=== PATIENT | female | born 1950 | race Caucasian/White ===

== ENCOUNTER → 2019-09-16 12:39 | Outpatient (CLI) | payer OTHER, SELFPAY ==
--- NOTE | ~2019-09-16 | MM_ITS ---
EXAMINATION: MM screening [facility] BI w bib[place] HISTORY: Screening mammogram TECHNIQUE: Craniocaudal and mediolateral oblique 3-D tomosynthesis images were obtained and synthetic 2-D images were generated. CAD analysis was submitted and interpreted. COMPARISON: 03/17/2018, 03/05/2018, 11/23/2015, 01/17/2013 BREAST PARENCHYMAL COMPOSITION: There are scattered areas of fibroglandular density. FINDINGS: There is no evidence of suspicious mass, calcification, or architectural distortion to sugg est malignancy in either breast. There has been no suspicious interval change. IMPRESSION: 1. No mammographic evidence of malignancy. 2. Recommend routine screening mammography in one year. BI-RADS Category 1: Negative Reviewed, dictated and finalized at location A.
== END ==
PROVIDERS: PCP Family Medicine Adolescent Medicine; Visit Provider Nurse Practitioner Obstetrics & Gynecology
DX: Z12.31 Encounter for screening mammogram for malignant neoplasm of breast (principal)
CPT/HCPCS: 77063; 77067

== ENCOUNTER 2022-04-04 00:44 | Day surgery (SDC) | payer OTHER, SELFPAY ==
[2022-03-18 12:05] VITALS: BMI 25.9
[2022-04-04 07:43] VITALS: BP 118/81; PULSE 72; RESP 20; TEMP 36.8; O2SAT 100
[2022-04-04] MEDS: LACTATED RINGERS 1,000 ML 150 ML IV CONT (07:52)
--- NOTE | 2022-04-04 08:48 | WPDANESEPPF ---
Anes - Initial Pre Proc Eval Procedure: Operation Date: 04/04/22 08:45 Proposed Procedures p Colonoscopy - Emile Najera MD Date/Time: 04/04/22 08:48 Surgeon: Emile Najera MD Pre Op Diagnosis: positive cologuard Patient Data Age: 72 Gender: F Height: 1.61 m Weight: 67.2 kg Last Vital Signs Temp 98.2 F 04/04/22 07:43 Pulse 72 04/04/22 07:43 Resp 20 04/04/22 07:43 BP 118/81 04/04/22 07:43 Pulse Ox 100 04/04/22 07:43 O2 Del Method Room Air 04/04/22 07:43 Allergies Allergy/AdvReac Type Severity Reaction Status Date / Time Sulfa (Sulfonamide AdvReac Intermediate Upset Verified 04/04/22 07:42 Antibiotics) stomach Home Medications Medication Instructions Recorded Confirmed Type levothyroxine 25 mcg tablet 25 mcg PO DAILY #90 tabs 11/20/21 04/04/22 Rx lovastatin 40 mg tablet 40 mg PO DAILY #90 tabs 11/20/21 04/04/22 Rx calcium carbonate 500 mg calcium 500 mg PO DAILY 03/05/22 04/04/22 History (1,250 mg) chewable tablet (Calcium 500) tiffanie (Zingiber officinalis) 500 500 mg PO DAILY 03/05/22 04/04/22 History mg capsule multivitamin (Daily Multi-Vitamin 1 tablet PO DAILY 03/05/22 04/04/22 History tablet) omega-3 fatty acids 500 mg capsule 500 mg PO DAILY 03/05/22 04/04/22 History vitamin B complex (B 1 tablet PO DAILY 03/05/22 04/04/22 History Complex-Vitamin B12 tablet) zinc gluconate 30 mg tablet 15 mg PO DAILY 03/05/22 04/04/22 History sodium,potassium,mag sulfates 17.5 See Rx Instructions PO .COMPLEX 03/07/22 04/04/22 Rx gram-3.13 gram-1.6 gram oral soln #354 mL (Suprep Bowel Prep Kit) Patient hx anesthesia problems: none Family hx anesthesia problems: none Results Review: All pre-operative results and documents have been reviewed as part of the pre-operative evaluation. PENDING SALE TO [facility] Surgical History Surgical History History of partial thyroidectomy (~2000) Adenoma Family History Family History Mother Alzheimer's dementia Father Family history of macular degeneration Alzheimer's dementia Other Family history of cardiovascular disease Social History Social History Smoking status: Never smoker Second hand tobacco smoke exposure: No Alcohol intake: never Substance use: never Substance use type: does not use Living arrangements: with family Additional living arrangements comments: spouse is disabled Gender identity (if verbalized by the patient): Female Sexual Orientation (if Verbalized by the Patient): Straight or Heterosexual Spiritual care concerns: No Agree to blood products: Yes Anes - Eval Final PreProcedure Day of Procedure 04/04/22 08:48 Patient weight: normal Heart: regular rate and rhythm Lungs: clear to auscultation Airway: Mallampati scale class II Neurological: alert and oriented Last oral intake: >/= 8 hours ASA classification: II Emergent: no Anesthetic plan: proceed Anesthesia type and monitoring: general GIVS and standard monitoring Results Review: All pre-operative results and documents have been reviewed as part of the pre-operative evaluation. Informed Consent: The patient's anesthetic plan and its attendant risks and benefits were discussed with the patient/family/POA. Questions were solicited and answers provided to the satisfaction of the patient/family/POA.
--- NOTE | 2022-04-04 09:14 | PM.HPGS ---
History of Present Illness History of Present Illness Consent: Risks, benefits, and alternatives have been discussed and questions answered. Patient agrees to proceed with procedure. Chief complaint: positive cologuard Narrative: Savanna Stark is a 72 year old female Presents for neoplasia screening colonoscopy. Patient recently found to have positive screening Cologuard test. Patient's current weight appetite and bowel movements are normal. Patient denies abdominal pain. She has had no bleeding. Family history noncontributory. Review of Systems Review of Systems: Review of systems noncontributory. [facility] Surgical History Surgical History History of partial thyroidectomy (~2000) Adenoma Family History Family History Mother Alzheimer's dementia Father Family history of macular degeneration Alzheimer's dementia Other Family history of cardiovascular disease Social History Social History Smoking status: Never smoker Second hand tobacco smoke exposure: No Alcohol intake: never Substance use: never Substance use type: does not use Living arrangements: with family Additional living arrangements comments: spouse is disabled Gender identity (if verbalized by the patient): Female Sexual Orientation (if Verbalized by the Patient): Straight or Heterosexual Spiritual care concerns: No Agree to blood products: Yes Meds Home Medications and Allergies Home Medications Medication Instructions Recorded Confirmed Type levothyroxine 25 mcg tablet 25 mcg PO DAILY #90 tabs 11/20/21 04/04/22 Rx lovastatin 40 mg tablet 40 mg PO DAILY #90 tabs 11/20/21 04/04/22 Rx calcium carbonate 500 mg calcium 500 mg PO DAILY 03/05/22 04/04/22 History (1,250 mg) chewable tablet (Calcium 500) tiffanie (Zingiber officinalis) 500 500 mg PO DAILY 03/05/22 04/04/22 History mg capsule multivitamin (Daily Multi-Vitamin 1 tablet PO DAILY 03/05/22 04/04/22 History tablet) omega-3 fatty acids 500 mg capsule 500 mg PO DAILY 03/05/22 04/04/22 History vitamin B complex (B 1 tablet PO DAILY 03/05/22 04/04/22 History Complex-Vitamin B12 tablet) zinc gluconate 30 mg tablet 15 mg PO DAILY 03/05/22 04/04/22 History sodium,potassium,mag sulfates 17.5 See Rx Instructions PO .COMPLEX 03/07/22 04/04/22 Rx gram-3.13 gram-1.6 gram oral soln #354 mL (Suprep Bowel Prep Kit) Allergies Allergy/AdvReac Type Severity Reaction Status Date / Time Sulfa (Sulfonamide AdvReac Intermediate Upset Verified 04/04/22 07:42 Antibiotics) stomach Vital Signs Vital Signs - 24 hr 04/04/22 07:43 Temperature 98.2 F Pulse Rate 72 Respiratory Rate 20 Blood Pressure 118/81 Pulse Oximetry 100 Oxygen Delivery Room Air Exam Narrative: Physical exam reveals patient to be alert. Vital signs stable. HEENT exam is unremarkable. Patient is anicteric. Lungs are clear to auscultation and percussion. Heart is without murmur or extra sounds. Abdomen bowel sounds are present soft nontender with no organomegaly. Digital external rectal exam is normal. Assessment and Plan Assessment and plan (1) Positive colorectal cancer screening using Cologuard test: Code(s): R19.5 - Other fecal abnormalities Status: Acute Assessment and Plan: Patient has a positive Cologuard test. Plan for a screening colonoscopy further recommendations will be given after endoscopy.
[2022-04-04 09:46] VITALS: BP 114/72; PULSE 65; RESP 16; O2SAT 99
[2022-04-04 09:56] VITALS: BP 119/67; PULSE 74; RESP 23; O2SAT 100
[2022-04-04 10:06] VITALS: BP 104/59; PULSE 69; RESP 23; O2SAT 100
== END 2022-04-04 10:14 | disposition home or self-care (01) ==
PROVIDERS: PCP Family Medicine Adolescent Medicine; Visit Provider Internal Medicine Gastroenterology
PROC: 0DJD8ZZ Inspection of Lower Intestinal Tract, Via Natural or Artificial Opening Endoscopic (ICD-10-PCS; CPT 45378; principal; 2022-04-04 08:45)
DX: R19.5 Other fecal abnormalities (principal); K64.8 Other hemorrhoids; K57.30 Diverticulosis of large intestine without perforation or abscess without bleeding; K63.5 Polyp of colon; E03.9 Hypothyroidism, unspecified
CPT/HCPCS: 45385; 88305; J2704; J7120

== ENCOUNTER 2022-09-19 09:58 | Outpatient (CLI) | payer OTHER, SELFPAY ==
--- NOTE | 2022-09-19 10:06 | EST_ITS ---
Patient Info Name: Savanna Stark Age: 72 years : 1950 Gender: Female Ht: 64 in Wt: 154 lbs BSA: 1.79 m2 Exam Date: 09/19/2022 10:34 AM Exam Location: [facility] Pulmonary Patient Status: Outpatient Admit Date: 09/19/2022 Staff Ordering Physician: Phan Cosme MD Fuel Technician: Shreya Hassan RDCS Attending Provider: DR. JOSEPH Referring Physician: Carmelina COSME; Exercise Technologist: Shreya Hassan RDCS Exercise Physician: Bashir Joseph DO Exam Type: CA stress echo Study Info Indications R07.9 - Chest pain, unspecified Treadmill exercise stress echocardiogram is performed. Summary 1. 1. Negative Vikas exercise stress test for ischemic ST changes by ECG criteria. 2. 2. Poor functional capacity, achieving 4.5 METs of workload. 3. 3. Baseline hypertension. 4. 4. Appropriate HR response to exercise. 5. 5. Appropriate HR recovery at 1 minute post exercise. 6. 6. Negative stress echocardiogram for ischemia by wall motion analysis. 7. 7. Patient informed of the above results. Stress Echo Findings Left Ventricle Appropriate increase in LV endocardial thickening with systole. Appropriate augmentation of contractility with systole. No wall motion abnormality. Left Ventricle Normal LV systolic function, no wall motion abnormality. Protocol: Vikas Stress ECG Details Stage: REST Duration (min): 1 min : 13 sec Speed (mph): 0.0 Grade (%): 0 HR (bpm): 78 SBP (mmHg): 155 DBP (mmHg): 94 METS: --- Stage: REST Duration (min): 43 min : 8 sec Speed (mph): 0.0 Grade (%): 0 HR (bpm): 76 SBP (mmHg): 155 DBP (mmHg): 94 METS: --- Stage: STAGE 1 Duration (min): 1 min : 0 sec Speed (mph): 1.7 Grade (%): 10 HR (bpm): 119 SBP (mmHg): 155 DBP (mmHg): 94 METS: --- Stage: STAGE 1 Duration (min): 2 min : 0 sec Speed (mph): 1.7 Grade (%): 10 HR (bpm): 142 SBP (mmHg): 155 DBP (mmHg): 94 METS: --- Stage: STAGE 1 Duration (min): 2 min : 1 sec Speed (mph): 0.0 Grade (%): 0 HR (bpm): 142 SBP (mmHg): 155 DBP (mmHg): 94 METS: --- Stage: RECOVERY Duration (min): 0 min : 58 sec Speed (mph): 0.0 Grade (%): 0 HR (bpm): 124 SBP (mmHg): 202 DBP (mmHg): 89 METS: --- Stage: RECOVERY Duration (min): 1 min : 58 sec Speed (mph): 0.0 Grade (%): 0 HR (bpm): 103 SBP (mmHg): 202 DBP (mmHg): 89 METS: --- Stage: RECOVERY Duration (min): 2 min : 58 sec Speed (mph): 0.0 Grade (%): 0 HR (bpm): 81 SBP (mmHg): 189 DBP (mmHg): 82 METS: --- Stage: RECOVERY Duration (min): 3 min : 58 sec Speed (mph): 0.0 Grade (%): 0 HR (bpm): 96 SBP (mmHg): 189 DBP (mmHg): 82 METS: --- Stage: RECOVERY Duration (min): 4 min : 58 sec Speed (mph): 0.0 Grade (%): 0 HR (bpm): 90 SBP (mmHg): 178 DBP (mmHg): 80 METS: --- Stage: RECOVERY Duration (min): 5 min : 4 sec Speed
== END 2022-09-19 09:59 | disposition home or self-care (01) ==
PROVIDERS: PCP Family Medicine Adolescent Medicine; Visit Provider Family Medicine Adolescent Medicine
DX: R07.9 Chest pain, unspecified (principal); E78.00 Pure hypercholesterolemia, unspecified; I10 Essential (primary) hypertension
CPT/HCPCS: 93351

== ENCOUNTER → 2022-12-27 15:54 | Outpatient (CLI) | payer OTHER, SELFPAY ==
--- NOTE | ~2022-12-27 | MM_ITS ---
EXAMINATION: MM screening [facility] BI w bib[place] HISTORY: Screening mammogram TECHNIQUE: Craniocaudal and mediolateral oblique 3-D tomosynthesis images were obtained and synthetic 2-D images were generated. CAD analysis was submitted and interpreted. COMPARISON: 09/16/2019 bilateral screening mammograms 03/17/2018 bilateral diagnostic mammogram and Limited bilateral breast ultrasound examination 03/05/2018 bilateral screening mammogram BREAST PARENCHYMAL COMPOSITION: There are scattered areas of fibroglandular stroma. FINDINGS: Stable mild fibroglandular asymmetry and mild nodularity of the fibroglandular stroma since 03/05/2018. Occasional bilateral benign calcifications. There is no evidence of suspicious mass, calc ification, or architectural distortion to suggest malignancy in either breast. There has been no susp icious interval change. IMPRESSION: 1. No mammographic evidence of malignancy. 2. Recommend routine screening mammography in one year. BI-RADS Category 2: Benign finding(s). Reviewed, dictated and finalized at location A.
== END ==
PROVIDERS: PCP Family Medicine Adolescent Medicine; Visit Provider Family Medicine Adolescent Medicine
DX: Z12.31 Encounter for screening mammogram for malignant neoplasm of breast (principal)
CPT/HCPCS: 77063; 77067

== ENCOUNTER 2023-05-02 17:29 | Emergency (ER) | payer OTHER, SELFPAY ==
--- NOTE | ~2023-05-02 | XR_ITS ---
EXAMINATION: XR wrist LT min 3V DATE: 05/02/2023 18:29 INDICATION: Left wrist pain TECHNIQUE: Posteroanterior, ulnar deviation, oblique, and lateral views of the left wrist were obtain ed. COMPARISON: None available FINDINGS: Bone alignment is normal. A possible fracture is seen dorsal to the distal carpal row on th e lateral view of the wrist a transverse lucency in the scaphoid waist on the oblique view likely rep resents a vascular channel. 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 Wrist soft tissue swelling is noted. IMPRESSION: 1. Possible dorsal avulsion fracture of the distal carpal row seen on the lateral view. Consider furt her evaluation with CT. Reviewed, dictated and finalized at location F. IMPRESSION: 1. Possible dorsal avulsion fracture of the distal carpal row seen on the later al view. Consider further evaluation with CT.
[2023-05-02 17:40] VITALS: BP 115/78; PULSE 90; RESP 18; TEMP 37.6; O2SAT 98
--- NOTE | 2023-05-02 17:51 | ED.UPPEXIN ---
HPI - Extremity Injury (Upper) General Chief Complaint: Extremity Injury, Upper <Kristina Mcgraw NP - Last Filed: 05/02/23 19:08> Stated Complaint: left wrist pain <KIMBERLY Peralta Last Filed: 05/02/23 19:08> Time Seen by Provider: 05/02/23 17:51 <Kristina Mcgraw NP - Last Filed: 05/02/23 19:08> Source: patient <Kristina Mcgraw NP - Last Filed: 05/02/23 19:08> Mode of arrival: ambulatory <KIMBERLY Peralta Last Filed: 05/02/23 19:08> Limitations: no limitations <Kristina Mcgraw NP - Last Filed: 05/02/23 19:08> History of Present Illness HPI narrative: 73 yo F presents with pain and swelling to R wrist. Fell today on sidewalk and put wrist down to catch herself. Denies hitting head. Was able to get up on her own. think i have a sprain but want an x-ray to make sure . ROM decreased due to pain, distal NV intact. All systems reviewed and negative except as noted above. <Kristina Mcgraw NP - Last Filed: 05/02/23 19:08> Related Data Home Medications: Home Medications Medication Instructions Recorded Confirmed calcium carbonate 500 mg calcium 500 mg PO DAILY 03/05/22 05/02/23 (1,250 mg) chewable tablet (Calcium 500) tiffanie (Zingiber officinalis) 500 500 mg PO DAILY 03/05/22 05/02/23 mg capsule multivitamin (Daily Multi-Vitamin 1 tablet PO DAILY 03/05/22 05/02/23 tablet) omega-3 fatty acids 500 mg capsule 500 mg PO DAILY 03/05/22 05/02/23 vitamin B complex (B 1 tablet PO DAILY 03/05/22 05/02/23 Complex-Vitamin B12 tablet) vitamin C 45 mg-zinc citrate 3.75 1 tablet PO DAILY 09/10/22 05/02/23 mg-elderberry 50 mg chewable tablet (GoPollGo) <KIMBERLY Peralta Last Filed: 05/02/23 19:08> Allergies/Adverse Reactions: Allergies Allergy/AdvReac Type Severity Reaction Status Date / Time Sulfa (Sulfonamide AdvReac Intermediate Upset Verified 05/02/23 17:31 Antibiotics) stomach <Kristina Mcgraw NP - Last Filed: 05/02/23 19:08> Review of Systems Review of Systems: CONSTITUTIONAL: Denies fever, chills, or sweats. EYES: Denies visual changes, redness, or discharge. ENT: Denies rhinorrhea, congestion, sore throat, or otalgia. CARDIOVASCULAR: Denies chest pain, palpitations, or edema. RESPIRATORY: Denies cough or dyspnea. GASTROINTESTINAL: Denies abdominal pain, nausea, vomiting, or diarrhea. GENITOURINARY: Denies dysuria or hematuria. SKIN: Denies rash or itching. MUSCULOSKELETAL: Denies back pain or myalgia. Reports pain and swelling to L wrist. NEUROLOGIC: Denies headache, numbness, or weakness. PSYCHIATRIC: Denies anxiety or depression. All other systems reviewed are negative, except as documented in HPI. <Kristina Mcgraw NP - Last Filed: 05/02/23 19:08> [facility] Past Medical History Medical History: Medical History (Updated 05/02/23 @ 19:08 by Caroline Marquez APRN) Positive colorectal cancer screening using Cologuard test <Kristina Mcgraw NP - Last Filed: 05/02/23 19:08> Surgical History Surgical History: Surgical History History of partial thyroidectomy (~2000) Adenoma <Kristina Mcgraw NP - Last Filed: 05/02/23 19:08> Family History Family History: Family History Mother Alzheimer's dementia Father Family history of macular degeneration Alzheimer's dementia Other Family history of cardiovascular disease <Kristina Mcgraw NP - Last Filed: 05/02/23 19:08> Social History Social History: Social History (Updated 01/28/23 @ 10:24 by Jeffery Perez MA) Smoking status: Never smoker Second hand tobacco smoke exposure: No Alcohol intake: never Substance use: never Substance use type: does not use Lack of Transportation: No Lack of Food: Never True Current Housing: I Have Housing Concerned [facility]
== END 2023-05-02 19:32 | disposition home or self-care (01) ==
PROVIDERS: Emergency Provider Nurse Practitioner Family; PCP Family Medicine Adolescent Medicine
DX: S62.102A Fracture of unspecified carpal bone, left wrist, initial encounter for closed fracture (principal); W19.XXXA Unspecified fall, initial encounter
CPT/HCPCS: 73110; 99213; G0463

== ENCOUNTER 2023-06-23 10:27 | Outpatient (CLI) | payer OTHER, SELFPAY ==
--- NOTE | ~2023-06-23 | XR_ITS ---
Left Knee Technique: AP, lateral, and sunrise views were obtained. Clinical History: Pain Findings: No fracture or dislocation is seen. Osseous alignment is anatomic. Joint spaces are preserv ed without degenerative or erosive change. Soft tissues are unremarkable. No joint effusion is seen. Impression: Unremarkable left knee radiographs. Reviewed, dictated and finalized at location . L [employer] Impression: Unremarkable left knee radiographs.
== END 2023-06-23 10:28 | disposition home or self-care (01) ==
PROVIDERS: PCP Family Medicine Adolescent Medicine; Visit Provider Family Medicine Adolescent Medicine
DX: M25.562 Pain in left knee (principal); W19.XXXA Unspecified fall, initial encounter
CPT/HCPCS: 73562

== ENCOUNTER 2023-07-25 12:07 | Outpatient (CLI) | payer OTHER, SELFPAY ==
--- NOTE | ~2023-07-25 | DEXA_ITS ---
Bone Density Report Name: YOBANI SANTOS Age: 73 Sex: Female Ethnicity: White Date of : 1950 Indication: postmenopausal; screening for osteoporosis; parental hip fracture; height loss; Referring Provider: ANASTASIA WASSERMAN Study: Bone densitometry was performed. Exam Date: July 25, 2023 Accession number: [id number] Bone Density: Region BMD T-score Z-score Classification AP Spine(L1-L4) 0.810 -2.2 0.2 Osteopenia Femoral Neck (Left) 0.579 -2.4 -0.4 Osteopenia Total Hip (Left) 0.730 -1.7 0.0 Osteopenia Femoral Neck (Right) 0.646 -1.8 0.2 Osteopenia Total Hip (Right) 0.852 -0.7 1.0 Normal Total Hip Mean 0.791 -1.2 0.5 Osteopenia World Health Organization criteria for BMD impression classify patients as: Normal (T-score at or above -1.0), Osteopenia (T-score between -1.0 and -2.5), or Osteoporosis (T-score at or below -2.5). 10-year Fracture Risk(1): Major Osteoporotic Fracture 27% Hip Fracture 16% Reported Risk Factors: [place] (), Neck BMD=0.579, BMI=27.8, parental fracture (1) FRAX(R) Version 3.08. Fracture probability calculated for an untreated patient. Fracture probability may be lower if the patient has received treatment. Clinical Information Provided by Patient: Parent has had a hip fracture Has used the following medications: Vitamin D, Calcium Patient maximum height was 64.0 Menopause Age: 47 No regular weight bearing exercise Drinks caffeinated beverages Onset of menses at age 11 Number of children 2 Impression: The patient has low bone mass, based on the Left Femoral Neck T-score. The patient has an estimated ten-year risk of hip fracture of 16% and an estimated ten-year risk of major fracture of 27%, based on the WHO FRAX algorithm. The patient has risk factors, including: parental hip fracture. Discussion: BONE DENSITY IS LOW AT ONE OR MORE SKELETAL SITES. THE PATIENT'S BMD AND CLINICAL RISK FACTORS CONTRIBUTE TO THIS PATIENT'S HIGH RISK OF FRACTURE. This patient's lowest T-score is low at one or more skeletal sites. It meets the World Health Organization's (WHO) criteria for ?low bone mass? (T-score between -1.0 and -2.5). The patient's 10-year risk of hip fracture and 10 year risk of a major osteoporotic fracture as calculated by FRAX exceeds the threshold where pharmacological therapy is recommended by the National Osteoporosis Foundation (NOF). However, all treatment decisions require clinical judgment and consideration of individual patient factors, including patient preferences, comorbidities, previous drug use, risk factors not captured in the FRAX model (e.g., frailty, falls, vitamin D deficiency, increased bone turnover, interval significant decline in bone density) and possible under or overestimation of fracture risk by FRAX. The aimee
== END 2023-07-25 12:08 | disposition home or self-care (01) ==
LOC: ANHIMG 12:08
PROVIDERS: PCP Family Medicine Adolescent Medicine; Visit Provider Family Medicine Adolescent Medicine
DX: M85.89 Other specified disorders of bone density and structure, multiple sites (principal); Z78.0 Asymptomatic menopausal state
CPT/HCPCS: 77080

== ENCOUNTER 2023-09-05 08:45 | Outpatient (RCR) | payer OTHER, SELFPAY ==
--- NOTE | 2023-07-23 13:44 | PTOPEVAL1 ---
Assessment and note entered by Thony Rangel Evaluation Information Assessment Status Evaluation Diagnosis left knee pain, primary OA of the left knee Onset 05/07/23 Subjective Information Pt. reports that she began noticing left knee pain about the first of May. She states that she had a steroid injection a week ago, which provided some relief. She describes a tenderness on the inside of the left knee since the injection . She states that pain is noticable with steps, and she has to take steps one at a time to avoid pain. She reports that pain is increased with standing and walking. She states that she has had xray which revealed arthritis. 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 She reports that her goal for therapy is to decrease he left knee pain. Reported Pain Level Pain Score 6: Self Report Assessment PT Clinical Summary Pt. is a 73 year old female who enters the clinic with left knee pain. She presents with decreased knee flexion, impaired proximal l.e. strength, pain and impaired gait. Continued skilled PT is indicated in order to improve these areas to allow for improved comfort with IADL performance. Plan of Care Interventions Electrical Stimulation,Gait Training,Hot Pack/Cold Pack,Manual Therapy,Neuro Re-education,Patient/ Caregiver Educati,Therapeutic Activities, Therapeutic Exercise PT Services Indicated Yes Treatment Frequency and 2x/week x 8 visits Duration These treatments will address the objective and functional deficits as defined above. The patient will be advanced safely and appropriately in order for the patient to progress towards his/her prior level of function. Additional exercises will be introduced and as well as a comprehensive home exercise program upon discharge, if needed, ?to ensure carryover of functional gains achieved in the clinic. This treatment plan has been reviewed and agreement upon by the patient.
--- NOTE | 2023-07-23 13:45 | OPREHPOC ---
Outpatient Therapy Plan of Care This is a Multidisciplinary Plan of Care that may contain components documented by all disciplines (PT, OT, and ST.) PT Problem 1 PT Problem #1 Knowledge Deficit PT Goal 1 Goal Pt. will be independent with a HEP focusing on strength and mobility buddhism. Target Visit 2 PT Problem 2 PT Problem #2 Pain PT Goal 1 Goal Pt. will report pain levels at 2/10 at worst. Target Visit 8 PT Problem 3 PT Problem #3 Impaired Gait PT Goal 1 Goal -Pt. will navigate steps with reciprocal pattern without pain increase for 10 steps -Pt. will ambulate over level surface for 5 minute duration with equal stance time on right and left . Target Visit 8 PT Problem 4 PT Problem #4 Impaired Strength PT Goal 1 Goal Pt. will present with 4+/5 bilateral hip abduction strength -Pt. will present with 5/5 left knee extension strength.
--- NOTE | 2023-08-21 15:04 | PTOPPROG ---
Assessment and note entered by Thony Rangel Evaluation Information Assessment Status Evaluation Diagnosis left knee pain, primary OA of the left knee Onset 05/07/23 Subjective Information pt. feels that therapy has helped. She states that her pain in the left knee is less intense since beginning therapy. She states that there has also been a decrease in the frequency of her pain . Despite pain decrease she still has a sense of unsteadiness. She reports slight sense of unsteadiness especially on outdoor surfaces. 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 Assessment PT Clinical Summary pt. has demonstrated progress in regards to strength and pain. She continues to present impaired l.e. strength, impaired gait mechanics and noted limitations in balance. pt. demonstrates a regression in her LEFS score, however upon review of the initial LEFS, pt. appears to have misinterpreted the tool, indicating she could run. At this time recommend continued skilled PT to address balance, gait and strength to optimize IADL performance. Plan of Care Interventions Gait Training,Neuro Re-education,Patient/Caregiver Educati,Therapeutic Activities,Therapeutic Exercise PT Services Indicated Yes Treatment Frequency and 2x/week x additional 6 visits Duration These treatments will address the objective and functional deficits as defined above. The patient will be advanced safely and appropriately in order for the patient to progress towards his/her prior level of function. Additional exercises will be introduced and as well as a comprehensive home exercise program upon discharge, if needed, ?to ensure carryover of functional gains achieved in the clinic. This treatment plan has been reviewed and agreement upon by the patient.
--- NOTE | 2023-12-18 08:56 | PCPTNOTE ---
Mrs. Stark attended a total of 11 treatment sessions from 07/23/23 to 09/05/23. She has failed to return to the clinic and will be discharged from our care at this time. Thank you for the referral of this patient. Thony Rangel, MPT
== END 2023-10-21 23:59 | disposition home or self-care (01) ==
LOC: ANHPT 08:45
PROVIDERS: PCP Family Medicine Adolescent Medicine; Visit Provider Nurse Practitioner Family
DX: M17.12 Unilateral primary osteoarthritis, left knee (principal)
CPT/HCPCS: 97014; 97110; 97112; 97140; 97161; 97530; G0283

== ENCOUNTER 2024-02-06 10:39 | Outpatient (CLI) | payer OTHER, SELFPAY ==
--- NOTE | ~2024-02-06 | MM_ITS ---
EXAMINATION: MM screening blake BI w bibiana HISTORY: Screening TECHNIQUE: Craniocaudal and mediolateral oblique 3-D tomosynthesis images were obtained and synthetic 2-D images were generated. CAD analysis was submitted and interpreted. COMPARISON: Comparison to multiple prior studies sequentially, with oldest reviewed study dated 11/22. BREAST PARENCHYMAL COMPOSITION: Not dense: There are scattered areas of fibroglandular density. FINDINGS: Stable bilateral asymmetric nodular fibroglandular content. No new suspicious masses, calci fications or architectural distortion in either breast to suggest malignancy. IMPRESSION: 1. No mammographic evidence of malignancy. 2. Recommend routine screening mammography in one year. BI-RADS Category 1: Negative Reviewed, dictated and finalized at location B.
== END 2024-02-06 10:40 ==
PROVIDERS: PCP Family Medicine Adolescent Medicine; Visit Provider Family Medicine Adolescent Medicine
DX: Z12.31 Encounter for screening mammogram for malignant neoplasm of breast (principal)
CPT/HCPCS: 77063; 77067

== ENCOUNTER 2024-02-16 10:53 | Outpatient (CLI) | payer OTHER, SELFPAY | END 2024-02-16 10:54 | disposition home or self-care (01) | LOC: ANHAUDIO 10:54 | PROVIDERS: PCP Family Medicine Adolescent Medicine; Visit Provider Otolaryngology | DX: H91.93 Unspecified hearing loss, bilateral (principal) | CPT/HCPCS: 92557; 92567 ==

== ENCOUNTER 2024-12-21 09:17 | Outpatient (CLI) | payer OTHER, SELFPAY ==
--- NOTE | ~2024-12-21 | NM_ITS ---
EXAMINATION: NM saeid stress w perfusion DATE: 12/21/2024 11:26 INDICATION: Chest pain TECHNIQUE: Rest images were obtained following intravenous administration of 10.9 mCi Tc99m tetrofosm in (Myoview). The patient was infused intravenously with Lexiscan (Regadenoson). Then, 35.0 mCi Tc99m tetrofosmin (Myoview) was administered intravenously, and stress images were obtained. Data was prema nstructed into short axis and horizontal and vertical long axis SPECT images. Gated SPECT images were also obtained. COMPARISON: None. FINDINGS: There is no definite reversible or fixed perfusion abnormality to suggest ischemia or infar ction. There is normal left ventricular chamber size, wall motion and ejection fraction. Left ventr icular ejection fraction measures >70%. IMPRESSION: 1. Normal myocardial perfusion at rest and during stress. 2. Left ventricular ejection fraction measuring >70%. Reviewed, dictated and finalized at location A.
--- NOTE | 2024-12-21 09:53 | EST_ITS ---
Patient Info Name: Savanna Stark Age: 74 years : 1950 Gender: Female Ht: 63 in Wt: 150 lbs BSA: 1.76 m2 HR: 64 bpm BP: 143 / 91 mmHg Exam Date: 12/21/2024 9:53 AM Patient Status: O Admit Date: 12/21/2024 Exam Type: CA stress saeid w NM A regadenoson stress test was performed. Staff Referring Physician: Rosalinda Dos Santos Attending Provider: Rosalinda Dos Santos Exercise Technologist: Disha Farmer Exercise Physician: Bashir Hdez DO Summary 1. 1. Negative lexiscan stress test for ischemic ST changes by ECG criteria. 2. 2. Baseline hypertension. 3. 3. Nuclear scan to follow and will be reported separately. Please correlate with it. 4. 4. Patient informed of the above results. Protocol: Lexiscan Stress ECG Details Stage: REST Duration (min): 2 min : 2 sec HR (bpm): 65 SBP (mmHg): 143 DBP (mmHg): 91 Stage: REST Duration (min): 10 min : 27 sec HR (bpm): 74 SBP (mmHg): 143 DBP (mmHg): 91 Stage: STAGE 1 Duration (min): 1 min : 0 sec HR (bpm): 96 SBP (mmHg): 172 DBP (mmHg): 110 Stage: RECOVERY Duration (min): 1 min : 0 sec HR (bpm): 97 SBP (mmHg): 172 DBP (mmHg): 110 Stage: RECOVERY Duration (min): 2 min : 0 sec HR (bpm): 97 SBP (mmHg): 172 DBP (mmHg): 110 Stage: RECOVERY Duration (min): 3 min : 0 sec HR (bpm): 95 SBP (mmHg): 158 DBP (mmHg): 103 Stage: RECOVERY Duration (min): 4 min : 0 sec HR (bpm): 90 SBP (mmHg): 158 DBP (mmHg): 103 Stage: RECOVERY Duration (min): 4 min : 2 sec HR (bpm): 89 SBP (mmHg): 158 DBP (mmHg): 103 Rest HR: 74 bpm Peak HR: 99 bpm Rest Sys BP: 143 mmHg Peak Sys BP: 172 mmHg Max Pred HR: 145 bpm % Max Pred HR: 68 % Target HR: 123 bpm Max RPP: 17,028 bpm*mmHg Termination Reason: Completed protocol Cardiac Symptoms: None Total Time: 1 min : 0 sec Rest Marks BP: 91 mmHg Peak Marks BP: 110 mmHg Total Dose: 0.4 mg Resting ECG Sinus rhythm, consider anterior infarct, consider inferior infarct. Stress ECG No ST changes. Arrhythmias None. Report Signatures
--- OUTSIDE RECORDS SUMMARY | 2024-12-21 09:59 | XMS_ITS | Clinical Summary ---
Author Organization [facility] Care Team Providers Care Full Service Vending Driver Name Role Phone Unavailable Primary Care Provider Unavailabl e Social History Tobacco Use Types Packs/Day Years Used Date Smoking Tobacco: Never Assessed Comments Unknown Sex and Gender Information Value Date Recorded Sex Assigned at Not on file Legal Sex Female 3:07 PM DIRECTOR OF GLOBAL MARKETING Gender Identity Not on file Sexual Orientation Not on file Plan of Treatment Health Maintenance Due Date Last Done Comments DEXA Bone Density 1950 Hepatitis C Virus (HCV) Screening 1950 Colonoscopy 1994 Colorectal Cancer Screening 1994 Cologuard 1999 Immunochemical Fecal Occult Blood 1999 Mammogram 1999 Pneumococcal Immunization (5 0+ years) (1 of 1 - PCV) 1999 Zoster Immunization (1 of 2) 1999 Respiratory Syncytial Virus (RSV) Immunization (Adult) (1 - 1-dose 75+ series) 02/06/2024 Influenza Immunization (#1) 2024 SARS-COV-2 Immunization ( season) 2024 DTaP/Tdap/Td Immunization Discontinued 01/30/2013 TdaP Immunization Completed 01/30/2013 Hepatitis B Immunization Aged Out No longer eligible based on patient's age to complete this topic Meningococcal Immunization (ACWY) Aged Out No longer eligible based on patient's age to complete this topic Rotavirus Immunization Aged Out No lo nger eligible based on patient's age to complete this topic
--- OUTSIDE RECORDS SUMMARY | 2024-12-21 09:59 | XMS_ITS | Clinical Summary ---
Author Organization [facility] Address [address] [place] [address] Care Team Providers Care Felt Machine Mechanic Name Role Phone Phan Cosme MD Primary Care Provider + Source Comments [facility],non-owned Affiliates and Associated Physician Practices is amultiple site organization consisting of ambulatory clinics and hospital sitesin [place], [place], [place] and [place]. This disclosure is being madepursuant to the Care Everywhere program and may not contain all information available regarding this patient. Last updated 18.[employer] [facility] Allergies No known active allergies Medications * Be aware that medications may not be up to date on this document. Alwaysverify current medications with the patient. 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),Peripheral tear of medial meniscus of left knee as current injury, initial encounter TAKE 1 CAPSULE BY MOUTH TWICE A DAY 60 capsule 4 Active Active Problems Problem Noted Date Diagnosed Date Spontaneous osteonecrosis of knee (SONK) lesion 10/24/2023 Peripheral tear of medial me niscus of left knee as current injury 10/24/2023 Social History Tobacco Use Types Packs/Day Years Used Date Smoking Tobacco: Never Smokeless Tobacco: Never Tobacco Cessation:Counseling Given: Not Answered Alcohol Use Standard Drinks/Week Comments Not Currently 0 (1 standard drink = 0.6 oz pur e alcohol) Comments Unknown Sex and Gender Information Value Date Recorded Sex Assigned at Not on file Legal Sex Female 10:35 AM CDT Gender Identity Not on file Sexual Orientation Not on file Last Filed Vital Signs Vital Sign Reading Time Taken Comments Blood Pressure - - Pulse - - Temperature - - Respiratory Rate - - Oxygen Saturation - - Inhaled Oxygen Concentration - - Weight 68.5 kg (151 lb) 10/24/2023 11:01 AM CDT Height 160 cm (5' 3) 10/24/2023 11:01 AM CDT Body Mass Index 26.75 10/24/2023 11:01 AM CDT Plan of Treatment Health Maintenance Due Date Last Done Comments BONE DENSITY TESTING 1950 COLOGUARD (AGES 45-75) - COL ON CA SCREENING 1950 COLON MONITORING 1950 COLONOSCOPY - COLON CA SCREENING 1950 CT COLONOGRAPHY - COLON CA SCREENING 1950 Colorectal Cancer Screening 1950 FIT - COLON CA SCREENING 1950 FLEX SIG - COLON CA SCREENING 1950 MAMMOGRAM 1950 MEDICARE AWV 12 MONTHS 1950 HEPATITIS C SCREENING 02/01/1967 DTAP/TDAP/TD VACCINES (1 - Tdap) 02/06/1968 PNEUMOCOCCAL VACCINE 50+ (1 of 1 - PCV) 1999 ZOSTER VACCINE (1 of 2) 1999 Respiratory Syncytial Virus (RSV) Vaccine Pt: or over 60 yrs (1 - 1-dose 75+ series) 02/06/2024 COVID-19 VACCINE ( - 2023-2 5 season) 2024 DEPRESSION SCREENING 07/07/2024 INFLUENZA VACCINE (Season Ended) 2025 HEPATITIS B VACCINE Aged Out No longe r eligible based on patient's age to complete this topic HIB VACCINE Aged Out No longer eligi ble based on patient's age to complete this topic HPV VACCINE Aged Out No longer eligi ble based on patient's age to complete this topic MENINGOCOCCAL (Group B) VACC INE SHARED DECISION-MAKING Aged Out No longer eligibl e based on patient's age to complete this topic MENINGOCOCCAL GROUPS A/C/Y/W VACCINE Aged Out No longer eligible b ased on patient's age to complete this topic Insurance [facility] MEDICARE [facility] MEDICARE [facility] Care Teams Felt Machine Mechanic Relationship Specialty Start Date End Date Phan Cosme MD [address] [facility] [address] [place] [address] PCP - General 04/11/22
--- OUTSIDE RECORDS SUMMARY | 2024-12-21 09:59 | XMS_ITS | Clinical Summary ---
Author Organization [facility] Address [address] [place] [id number] Care Team Providers Care Home Energy Consultant Supervisor Name Role Phone Phan Cosme MD Primary Care Provider +1- [phone] Social History Tobacco Use Types Packs/Day Years Used Date Smoking Tobacco: Never Assessed Comments Unknown Sex and Gender Information Value Date Recorded Sex Assigned at Not on file Legal Sex Female 6:32 PM CDT Gender Identity Not on file Sexual Orientation Not on file Plan of Treatment Upcoming Encounters Date Type Department Care Team (Late st Contact Info) Description 04/07/2025 10:00 AM CDT Office Visit [facility] - [address] [place] [address] Sharan Angel MD [address] [place] [address] [phone] Health Maintenance Due Date Last Done Comments Colorectal Cancer Screening Colonoscopy (10 Years) 1950 Hepatitis C 1967 Zoster Vaccines (1 of 2) 1999 Annual Medicare Wellness Visit 2014 Dexa Scan (General) 2014 DTaP, Tdap and Td Vaccines ( 2 - Td or Tdap) 01/30/2023 01/30/2013 COVID-19 Vaccine (2023-2 5 season) 2024 05/16/2021, 09/19/2020, 08/10/2020 Pneumococcal Vaccine: 50+ Years Completed 06/07/2022 RSV Immunization or 60+ Years Completed 04/01/2023 Meningococcal B Vaccine Aged Out No l onger eligible based on patient's age to complete this topic Meningococcal Vaccine Aged Out No sami jessica eligible based on patient's age to complete this topic RSV Immunizations Under 20 Months Aged Out No longer eligible b ased on patient's age to complete this topic Insurance [facility] Care Teams Home Energy Consultant Supervisor Relationship Specialty Start Date End Date Phan Cosme MD [address] [place] [id number] PCP - General FAMILY PRACTICE 10/07/23
== END 2024-12-21 09:18 | disposition home or self-care (01) ==
LOC: ANHCARD 09:19
PROVIDERS: PCP Family Medicine Adolescent Medicine; Visit Provider Family Medicine
DX: R07.9 Chest pain, unspecified (principal)
CPT/HCPCS: 78452; 93017; A9502; J2785

== ENCOUNTER 2025-01-05 08:45 | Outpatient (CLI) | payer OTHER, SELFPAY ==
--- OUTSIDE RECORDS SUMMARY | 2025-01-05 08:51 | XMS_ITS | Clinical Summary ---
Author Organization [facility] [employer] Address [address] [place] [address] Care Team Providers Care Customer Service Technician Name Role Phone Phan Cosme MD Primary Care Provider + Source Comments [facility],non-owned Affiliates and Associated Physician Practices is amultiple site organization consisting of ambulatory clinics and hospital sitesin [place] and [place]. This disclosure is being madepursuant to the Care Everywhere program and may not contain all information available regarding this patient. Last updated 18.[facility] [employer] Allergies No known active allergies Medications * [...] patient's age to complete this topic Insurance [facility] MEDIC[facility] Care Teams Customer Service Technician Relationship Specialty Start Date End Date Phan Cosme MD [address] [place] [phone] PCP - General 04/11/22
--- OUTSIDE RECORDS SUMMARY | 2025-01-05 08:51 | XMS_ITS | Clinical Summary ---
Author Organization [facility] Address [address] [place] [address] Care Team Providers Care Bakeshop Cleaner Name Role Phone Phan Cosme MD Primary Care Provider +1- [phone] Social History Tobacco Use Types Packs/Day Years Used Date Smoking Tobacco: Never Assessed Comments Unknown Sex and Gender Information Value Date Recorded Sex Assigned at Not on file Legal Sex Female 6:32 PM CDT Gender Identity Not on file Sexual Orientation Not on file Plan of Treatment Upcoming Encounters Date Type Department Care Team (Late st Contact Info) Description 01/06/2025 10:00 AM CDT Office Visit [facility] - [address] [place] [address] Sharan Angel MD [address] [place] [address] [phone] Health Maintenance Due Date Last Done Comments [...] patient's age to complete this topic Insurance [facility] Care Teams Bakeshop Cleaner Relationship Specialty Start Date End Date Phan Cosme MD [address] [place] [id number] PCP - General FAMILY PRACTICE 10/07/23
--- OUTSIDE RECORDS SUMMARY | 2025-01-05 08:51 | XMS_ITS | Clinical Summary ---
Author Organization [facility] Care Team Providers Care Lead Quality Technician Name Role Phone Unavailable Primary Care Provider Unavailabl e Social History Tobacco Use Types Packs/Day Years Used Date Smoking Tobacco: Never Assessed Comments Unknown Sex and Gender Information Value Date Recorded Sex Assigned at Not on file Legal Sex Female 3:07 PM FINANCIAL ENGINEER Gender Identity Not on file Sexual Orientation [...]
--- NOTE | 2025-01-26 13:08 | WPDHOLTEREM ---
Holter/Event Monitor Holter/Event Monitor Date of procedure: 01/05/25 Holter/Event Procedure: 3-7 Day Holter Monitor Indications: Palpitations Conclusion: 1. 5 days holter monitor on 01/05/25. 2. Predominant rhythm is sinus rhythm. HR range 49-250 bpm; average HR 82 bpm. HR at 49 bpm was on 01/07/25 at 6:55 am. 3. There are rare premature supraventricular complexes, rare supraventricular couplets, and rare supraventricular triplets. There is 1 episode of supraventricular tachycardia at 138 bpm lasting 14 seconds. 4. There are rare premature ventricular complexes and rare ventricular couplets. There is 1 episode of ventricular tachycardia at 250 bpm lasting 5 beats. 5. No significant pauses greater than 3 seconds. 6. Patient reports 6 episodes of symptoms of fluttering, chest pain which demonstrates sinus rhythm, HR range 58-84 bpm.
== END 2025-01-05 08:46 | disposition home or self-care (01) ==
LOC: ANHCARD 08:47
PROVIDERS: PCP Family Medicine Adolescent Medicine; Visit Provider Family Medicine
DX: R00.2 Palpitations (principal)
CPT/HCPCS: 93242

== ENCOUNTER 2025-02-07 13:31 | Outpatient (CLI) | payer OTHER, SELFPAY ==
--- NOTE | ~2025-02-07 | MM_ITS ---
EXAMINATION: MM screening blake BI w bibiana HISTORY: Screening TECHNIQUE: Craniocaudal and mediolateral oblique 3-D tomosynthesis images were obtained and synthetic 2-D images were generated. CAD analysis was submitted and interpreted. COMPARISON: Comparison to multiple prior studies sequentially, with oldest reviewed study dated 11/22. BREAST PARENCHYMAL COMPOSITION: There are scattered areas of fibroglandular density. FINDINGS: There is no evidence of suspicious mass, calcification, or architectural distortion to sug gest malignancy in either breast. IMPRESSION: 1. No mammographic evidence of malignancy. 2. Recommend routine screening mammography in one year. BI-RADS Category 1: Negative Reviewed, dictated and finalized at location B.
== END 2025-02-07 13:32 | disposition home or self-care (01) ==
LOC: MICIMG 13:31
PROVIDERS: PCP Family Medicine Adolescent Medicine; Visit Provider Family Medicine Adolescent Medicine
DX: Z12.31 Encounter for screening mammogram for malignant neoplasm of breast (principal)
CPT/HCPCS: 77063; 77067

== ENCOUNTER 2025-02-28 12:22 | Outpatient (CLI) | payer OTHER, SELFPAY ==
--- OUTSIDE RECORDS SUMMARY | 2015-06-12 17:00 | XMS_ITS | Continuity of Care Document ---
Author Organization [facility] Address [address] [place] [address] [address] [place] [address] Phone Care Team Providers Care Aoc Plans Intelligence Officer Name Role Phone Antonio Wooten MD, MD Unavailable Unavailable Procedures Procedure Date AFTER CATARACT LASER SURGERY OPHTHALMIC BIOMETRY CATARACT SURG W/IOL, 1 STAGE DILATED FUNDUS EVAL DONE PRE-SURG EYE MEASURES DOC'D OPHTHALMIC BIOMETRY CATARACT SURG W/IOL, 1 STAGE DILATED FUNDUS EVAL DONE PRE-SURG EYE MEASURES DOC'D Advance Directives Directive Yes / No Effective Date File Name No Information Encounters Encounter Description Practice Location Reason(s) For Visit Diagnoses Date Provider Providers Copied on Encounter [facility], [address] [place] [address], [id number], [phone] [address] [place] [address] No Information 5 Sugar Alvarez. [address], [place], [id number] , [place]. tel:[phone] Referring Provider: Antonio Green, [address], [place], [address] . tel:[phone] [facility], [address] [place] [address], [id number], tel:[phone] [address] [place] [address] No Information 4 Sugar Alvarez. [address], [id number] , [place]. tel:[phone] Referring Provider: Antonio Wooten MD P, [address], [place], [address] . tel:[phone] [facility], [address], [place], [place], [id number], tel:[phone] 78 [facility] No Information 4 Sugar Alvarez. [address], [address], [place], [place], [id number] , [place]. tel:[phone] Referring Provider: Antonio Wooten MD P, [address], [place], [address] . tel:[phone] Family History Family Member Type Diagnosis Age At Onset No Information Payers Payer name Insurance type Covered democrat ID Authoriza tion(s) MEDIC[place] OF [place] [id number] [facility] [employer] CI [id number] Social History Type Description Quantity Date Captured Comments Sex Female Smoking Status No Information Chief Complaint And Reason For Visit No Information Reason For Referral Reason For Referral No Information History Of Present Illness Encounter Date Complaint History Of Prese nt Illness No Information Functional Status Date Functional Assessmen t No Information Instructions Date Instruction Additional Infor mation No Information Assessments Type Assessment Date No Information Patient Care Teams Name Effective Dates (start - stop) Status Members No Information
--- NOTE | 2025-02-28 12:29 | ECHO_ITS ---
Patient Info Name: Savanna Stark Age: 75 years : 1950 Gender: Female Ht: 63 in Wt: 151 lbs BSA: 1.76 m2 HR: 66 bpm BP: 135 / 82 mmHg Heart Rhythm: Sinus Rhythm Technical Quality: Fair Exam Date: 02/28/2025 12:44 PM Patient Status: O Admit Date: 02/28/2025 Exam Type: CA echo doppler color flow Complete two-dimensional, color flow and Doppler transthoracic echocardiogram is performed. Lab Pack Chemist: Disha Farmer Attending Provider: Bashir Hdez DO Summary 1. Complete two-dimensional, color flow and Doppler transthoracic echocardiogram is performed. 2. Left ventricular chamber dimension is normal. 3. Left ventricular systolic function is normal, estimated at 65-70. 4. There is mild concentric increased left ventricular wall thickness. 5. E/e' 12 is mildly elevated. 6. Left atrial chamber dimension is moderately enlarged. 7. There is trace mitral valve regurgitation. 8. There is mild tricuspid valve regurgitation. 9. No pulmonary hypertension, estimated pulmonary arterial systolic pressure is 31 mmHg. 10. There is trace pulmonic regurgitation. Left Ventricle E/e' 12 is mildly elevated. Left ventricular chamber dimension is normal. Left ventricular systolic function is normal, estimated at 65-70. There is mild concentric increased left ventricular wall thickness. The left ventricular diastolic function is grade I diastolic dysfunction. Right Ventricle Right ventricular chamber dimension is normal. Right ventricular systolic function is normal and with normal TAPSE 2.0 cm. Left Atria Left atrial chamber dimension is moderately enlarged. Right Atria Right atrial chamber dimension is normal. Aortic Valve The aortic valve is trileaflet. There is no aortic valve stenosis. There is no aortic valve regurgitation. Pulmonic Valve There is trace pulmonic regurgitation. Mitral Valve There is no mitral valve stenosis. There is trace mitral valve regurgitation. Tricuspid Valve There is mild tricuspid valve regurgitation. No pulmonary hypertension, estimated pulmonary arterial systolic pressure is 31 mmHg. Pericardium/Pleural There is no pericardial effusion. Inferior Vena Cava Normal inferior vena cava with >50% collapse upon inspiration consistent with normal right atrial pressure, 5 mmHg. Aorta The aortic root size at the sinus of Valsalva is normal. Left Ventricular Outflow Tract Name Value Normal LVOT 2D LVOT Diameter 2.2 cm LVOT Doppler LVOT Peak Velocity 74 cm/s LVOT Peak Gradient 2 mmHg LVOT Mean Gradient 1 mmHg LVOT VTI 14 cm LVOT VTI/AV VTI Ratio 0.5 LVOT Stroke Volume 53 ml LVOT CO 3.4 l/min LVOT CI 2.0 l/min/m2 Pulmonic Valve Name Value Normal RVOT Doppler RVOT Peak Velocity 54 cm/s RVOT Peak Gradient 1 mmHg PV Doppler PV Peak Velocity 112 cm/s PV Peak Gradient 5 mmHg Mitral Valve Name Value Normal MV Diastolic Function MV E Peak Velocity 66 cm/s MV A Peak Velocity 67 cm/s MV E/A 1.0 MV Decel Time (PW) 196 ms MV Annular TDI MV E/e' (Septal) 10.5 MV E/e' (Lateral) 14.7 MV E/e' (Average) 12.6 Tricuspid Valve Name Value Normal TV Regurgitation Doppler TR Peak Velocity 257 cm/s TR Peak Gradient 17 mmHg Estimated PAP/RSVP RA Pressure 5 mmHg <=5 PA Systolic Pressure 31 mmHg <36 RV Systolic Pressure 31 mmHg <36 TV Annular TDI TV Lateral Pretty s' Velocity 17.9 cm/s >=9.5 Aorta Name Value Normal Ascending Aorta Ao Root Diameter (MM) 3.0 cm Ao Root Diam Index (MM) 1.7 cm/m2 Aortic Valve Name Value Normal AV Doppler AV Peak Velocity 136 cm/s AV Peak Gradient 7 mmHg AV Mean Gradient 4 mmHg AV VTI 27 cm AV Area (Cont Eq VTI) 2.0 cm2 >=3.0 AV Area (Cont Eq Kirill) 2.1 cm2 AV DI (Kirill) 0.55 AV Regurgitation 2D LVOT Area 3.7 cm2 Ventricles Name Value Normal LV Dimensions 2D/MM IVS Diastolic Thickness (2D) 1.3 cm 0.6-1.0 LVID Diastole (2D) 4.2 cm 3.8-5.2 LVIW Diastolic Thickness (2D) 1.2 cm 0.6-0.9 LVID Systole (2D) 2.8 cm 2.2-3.5 LVOT Diameter 2.2 cm LV Mass (2D Cubed) 194.03 g 67.00-162.00 LV Mass Index (2D Cubed) 110 g/m2 43-95 Relative Wall Thickness (2D) 0.58 <=0.42 LV Fractional Shortening/Ejection Fraction 2D/MM LV Fractional Shortening (2D) 34 % 27-45 LV EF (2D Teichholz) 64 % LV Diastolic Volume (4C MOD) 91 ml LV EF (4C MOD) 72 % LV Diastolic Volume (2C MOD) 49 ml LV EF (2C MOD) 70 % LV Diastolic Volume (BP MOD) 71 ml 46-106 LV Diastolic Volume Index (BP MOD) 41 ml/m2 29-61 LV Systolic Volume (BP MOD) 20 ml 14-42 LV Systolic Volume Index (BP MOD) 12 ml/m2 8-24 LV EF (BP MOD) 71 % 54-74 LV Diastolic Length (4C) 7.9 cm LV Systolic Length (4C) 6.6 cm LV Stroke Volume (4C MOD) 65 ml Atria Name Value Normal LA Dimensions LA Dimension (MM) 4.3 cm 2.7-3.8 LA Volume (4C A-L) 91 ml LA Volume (BP A-L) 70 ml RA Dimensions RA Area (4C) 17.1 cm2 <=18.0 Report Signatures
--- OUTSIDE RECORDS SUMMARY | 2025-02-28 12:30 | XMS_ITS | Clinical Summary ---
Author Organization [facility] Address [address] [place] [address] Care Team Providers Care Cashiers Bussers Food Runners Name Role Phone Phan Cosme MD Primary Care Provider [phone]- [phone] Allergies No known active allergies Medications lovastatin (MEVACOR) 40 MG tablet Take 1 tablet (40 mg total) by mouth daily. Active LORazepam (ATIVAN) 0.5 MG tablet Active levothyroxine (SYNTHROID) 25 MCG tablet Take 1 tablet (25 mcg total) by mouth daily. Active celecoxib (CELEBREX) 200 MG capsule Take 1 capsule (200 mg total) by mouth 2 (two) times daily. 4 Active Vitamin E Acetate 1 UNIT/MG Liquid Take 1 tablet by mouth daily. Active B Complex Vitamins (VITAMIN B COMPLEX OR) Take 1 tablet by mouth daily. Active omega-3 acid (LOVAZA) 1 GM capsule Take 1 capsule (1 g total) by mouth daily. Active Multiple Vitamin (MULTIVITAMIN ADULT) Tab Take 1 capsule by mouth daily. Active Cholecalciferol 1.25 MG (07332 UT) Tab Take 1 tablet by mouth daily. Active calcium citrate-vitamin D-magnesium 600 mg/1000 IU/300 mg oral liquid Take 1 tablet by mouth daily. Active Biotin 1 MG Cap Take 1 tablet by mouth daily. Active vitamin C (ASCORBIC ACID) 500 MG Chew Tab chewable tablet Chew 1 tablet (500 mg total) by mouth daily. Active metoprolol succinate ER (TOPROL-XL) 25 MG 24 hr tablet Take 1 tablet (25 mg total) by mouth daily. 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 Encounters Date Type Department Care Team Description 02/24/2025 9:20 AM CDT [facility] [place] - [address], [address] [place] [phone] Sharan Angel MD Botox Procedure (Hemifacial spasm) 02/24/2025 Scan [employer] INFO SRVCS Scanned, Doc Med Group 02/24/2025 Travel 01/20/2025 Telephone [facility] Neurology Special[facility] - [address] [place] [address] Sharan Angel MD Prior Authorization 01/10/2025 [facility] [place] - [address], [address] [place] [phone] Sharan Angel MD 01/06/2025 10:00 AM CDT Office Visit [facility] Neurology Speciality [facility] - [address] [place] [address] Sharan Angel MD Establish Care (Clonic hemifacial spasm, right/) 01/06/2025 Travel from Last 3 Months Social History Tobacco Use Types Packs/Day Years Used Date Smoking Tobacco: Never Smokeless Tobacco: Never Tobacco Cessation:Counseling Given: Yes Alcohol Use Standard Drinks/Week Comments Never 0 (1 standard drink = 0.6 oz pur e alcohol) PHQ-2 Answer Date Recorded Patient Health Questionnaire-2 Score 0 01/06/2025 Comments No Sex and Gender Information Value Date Recorded Sex Assigned at Not on file Legal Sex Female 6:32 PM CDT Gender Identity Not on file Sexual Orientation Not on file Last Filed Vital Signs Vital Sign Reading Time Taken Comments Blood Pressure 130/78 02/24/2025 9:22 AM CDT Pulse 72 02/24/2025 9:22 AM CDT Temperature 36.7 C (98.1 F) 02/24/2025 9:22 AM CDT Respiratory Rate 16 02/24/2025 9:22 AM CDT Oxygen Saturation 99% 02/24/2025 9:22 AM CDT Inhaled Oxygen Concentration - - Weight 69.9 kg (154 lb) 02/24/2025 9:22 AM CDT Height 160 cm (5' 3) 02/24/2025 9:22 AM CDT Body Mass Index 27.28 02/24/2025 9:22 AM CDT Plan of Treatment Upcoming Encounters Date Type Department Care Team (Late st Contact Info) Description 06/16/2025 9:20 AM AIR VALUE TESTER Office Visit [facility] Multispecialty Care - [facility] [address] [facility], [address] [place] [phone] Sharan Angel MD [address] [place] [address] Health Maintenance Due Date Last Done Comments Hepatitis C 1967 Zoster Vaccines (1 of 2) 1999 Annual Medicare Wellness Visit 2014 Dexa Scan (General) 2014 DTaP, Tdap and Td Vaccines ( 2 - Td or Tdap) 01/30/2023 01/30/2013 COVID-19 Vaccine (4 2023-2 5 season) 2024 05/16/2021, 09/19/2020, 08/10/2020 Pneumococcal Vaccine: 50+ Years Completed 06/07/2022, 06/21/2021, 04/27/2019 RSV Immunization or 60+ Years Completed 04/01/2023 PHQ-2 (Physician [place]) Completed 01/06/2025 Meningococcal B Vaccine Aged Out No l onger eligible based on patient's age to complete this topic Meningococcal Vaccine Aged Out No sami jessica eligible based on patient's age to complete this topic RSV Immunizations Under 20 Months Aged Out No longer eligible b ased on patient's age to complete this topic Insurance [facility] Care Teams Cashiers Bussers Food Runners Relationship Specialty Start Date End Date Phan Cosme MD [address] [place] [id number] PCP - General FAMILY PRACTICE 10/07/23
--- OUTSIDE RECORDS SUMMARY | 2025-02-28 12:30 | XMS_ITS | Clinical Summary ---
Author Organization [facility] Care Team Providers Care Forge Heater Name Role Phone Unavailable Primary Care Provider Unavailabl e Social History Tobacco Use Types Packs/Day Years Used Date Smoking Tobacco: Never Assessed Comments Unknown Sex and Gender Information Value Date Recorded Sex Assigned at Not on file Legal Sex Female 3:07 PM CAN REPAIRER Gender Identity Not on file Sexual Orientation Not on file Plan of Treatment Health Maintenance Due Date Last Done Comments Hepatitis C Virus (HCV) Screening 1950 Pneumococcal Immunization (5 0+ years) (1 of 1 - PCV) 1999 Zoster Immunization (1 of 2) 1999 Respiratory Syncytial Virus (RSV) Immunization (Adult) (1 - 1-dose 75+ series) 02/06/2024 SARS-COV-2 Immunization (25 season) 2024 Influenza Immunization (#1) 2025 DTaP/Tdap/Td Immunization Discontinued 01/30/2013 TdaP Immunization Completed 01/30/2013 Hepatitis B Immunization Aged Out No longer eligible based on patient's age to complete this topic Human Papillomavirus (HPV) Immunization Aged Out No longer eligible b ased on patient's age to complete this topic Meningococcal Immunization (ACWY) Aged Out No longer eligible based on patient's age to complete this topic Rotavirus Immunization Aged Out No lo nger eligible based on patient's age to complete this topic
--- OUTSIDE RECORDS SUMMARY | 2025-02-28 12:30 | XMS_ITS | Encounter Summary ---
Author Organization [facility] Address [facility] [place] [address] Care Team Providers Care Immunology Teacher Name Role Phone Phan Cosme MD Primary Care Provider +1- [phone] Encounter Details Date Type Department Care Team (Latest Contact Info) Description 02/24/2025 Scan [facility] INFO SRVCS Scanned, Doc Med Group Social History Tobacco Use Types Packs/Day Years Used Date Smoking Tobacco: Never Smokeless Tobacco: Never Alcohol Use Standard Drinks/Week Comments Never 0 (1 standard drink = 0.6 oz pur e alcohol) PHQ-2 Answer Date Recorded Patient Health Questionnaire-2 Score 0 01/06/2025 Comments No Sex and Gender Information Value Date Recorded Sex Assigned at Not on file Legal Sex Female 6:32 PM CDT Gender Identity Not on file Sexual Orientation Not on file documented as of this encounter Plan of Treatment Upcoming Encounters Date Type Department Care Team (Late st Contact Info) Description 06/16/2025 9:20 AM HORTICULTURAL SPECIALTY GROWER Office Visit [facility] Multispecialty Care - [facility] [address] [facility], [address] [place] [address] Sharan Angel MD [address] [place] [address] documented as of this encounter Visit Diagnoses Not on filedocumented in this encounter Care Teams Immunology Teacher Relationship Specialty Start Date End Date Phan Cosme MD [address] [address] PCP - General FAMILY PRACTICE 10/07/23 documented as of this encounter
--- OUTSIDE RECORDS SUMMARY | 2025-02-28 12:30 | XMS_ITS | Clinical Summary ---
Author Organization [facility] Address [address] [facility] [address] Care Team Providers Care Street Light Cleaner Name Role Phone Phan Cosme MD Primary Care Provider + Source Comments [facility],non-owned Affiliates and Associated Physician Practices is amultiple site organization consisting of ambulatory clinics and hospital sitesin [place], [place], [place] and [place]. This disclosure is being madepursuant to the Care Everywhere program and may not contain all information available regarding this patient. Last updated 18.[employer] [facility] Allergies No known active allergies Medications * [...] Last Done Comments BONE DENSITY TESTING 1950 MEDICARE AWV 12 MONTHS 1950 HEPATITIS C SCREENING 02/01/1967 DTAP/TDAP/TD VACCINES (1 - Tdap) 02/06/1968 PNEUMOCOCCAL VACCINE 50+ (1 of 1 - PCV) 1999 ZOSTER VACCINE (1 of 2) 1999 Respiratory Syncytial Virus (RSV) Vaccine Pt: or over 60 yrs (1 - 1-dose 75+ series) 02/06/2024 COVID-19 VACCINE ( - 2023-2 5 season) 2024 DEPRESSION SCREENING 07/07/2024 INFLUENZA VACCINE (#1) 2025 HEPATITIS B VACCINE Aged Out No [...] patient's age to complete [place] [address] [facility] MEDICARE [facility] MEDICARE Care Teams Street Light Cleaner Relationship Specialty Start Date End Date Phan Cosme MD [address] [facility] [address] [place] [address] PCP - General 04/11/22
--- OUTSIDE RECORDS SUMMARY | 2025-02-28 12:30 | XMS_ITS | Encounter Summary ---
Author Organization [facility] Address [facility] [place] [address] Care Team Providers Care Director Of Video Analytics Name Role Phone Phan Cosme MD Primary Care Provider +1- [phone] Encounter Details Date Type Department Care Team (Late Contact Info) Description 01/10/2025 Therapy Plan [address], [address] [place] [phone] Sharan Angel MD [address] [place] [phone] Social History Tobacco Use Types Packs/Day Years Used Date Smoking Tobacco: Never Smokeless Tobacco: Never Alcohol Use Standard Drinks/Week Comments Never 0 (1 standard drink = 0.6 oz pur e alcohol) PHQ-2 Answer Date Recorded Patient Health Questionnaire-2 Score 0 01/06/2025 Comments Unknown Sex and Gender Information Value Date Recorded Sex Assigned at Not on file Legal Sex Female 6:32 PM CDT Gender Identity Not on file Sexual Orientation Not on file documented as of this encounter Plan of Treatment Upcoming Encounters Date Type Department Care Team (Late Contact Info) Description 06/16/2025 9:20 AM SANITATION WORKER HOSING MACHINERY Office Visit [address], [address] [place] [phone] Sharan Angel MD [address] [place] [address] documented as of this encounter Visit Diagnoses Not on filedocumented in this encounter Care Teams Director Of Video Analytics Relationship Specialty Start Date End Date Phan Cosme MD [address] [address] PCP - General FAMILY PRACTICE 10/07/23 documented as of this encounter
== END 2025-02-28 12:23 | disposition home or self-care (01) ==
LOC: ANHCARD 12:22
PROVIDERS: PCP Family Medicine Adolescent Medicine; Visit Provider Internal Medicine Cardiovascular Disease
DX: R93.1 Abnormal findings on diagnostic imaging of heart and coronary circulation (principal); I47.20 Ventricular tachycardia, unspecified
CPT/HCPCS: 93306

== ENCOUNTER 2025-05-27 11:15 | Outpatient (RCR) | payer OTHER, SELFPAY ==
--- NOTE | 2025-03-02 16:41 | OPREHPOC ---
Outpatient Therapy Plan of Care This is a Multidisciplinary Plan of Care that may contain components documented by all disciplines (PT, OT, and ST.) PT Problem 1 PT Problem #1 Knowledge Deficit PT Goal 1 Goal / Goal Update Pt. will demo good understanding of diagnosis and prognosis, HEPs. Target Visit 10 PT Problem 2 PT Problem #2 Pain PT Goal 1 Goal / Goal Update Pt will report 1-2/10 level of pain at worst or when standing, walking and going up/down stairs. Target Visit 12 PT Problem 3 PT Problem #3 Impaired Strength PT Goal 1 Goal / Goal Update Pt will perform SLS of 10 seconds each LE with improved stability and balance. Target Visit 12 PT Problem 4 PT Problem #4 Impaired Gait PT Goal 1 Goal / Goal Update Pt will demo normalized gait pattern with appropriate orthosis in order to improve ambulation safety and tolerance. Target Visit 12
--- NOTE | 2025-03-02 16:41 | PTOPEVAL1 ---
Assessment and note entered by Yenni Aviles, PT Evaluation Information Assessment Status Evaluation Diagnosis M17.12 ICD-10 Condition Codes (PT) Pain in left hip M25.552,Pain in left knee M25.562 ,Difficulty Walking R26.2,Abnormalities of gait and mobility R26.9,Weakness R53.1 Subjective Information L knee feels weak, hurt most when she first get up after sitting/laying down for a long period of time; generalized ache on the back and hips as well. a few years ago, fell on her knee, but at the time of injury, she did not feel pain on the knee. States that she just woke up one morning, and felt intense pain to L hip and knee, it persisted and has made walking long distances and going up/down stairs difficult. Reported Pain Level Pain Score 2: Self Report Assessment PT Clinical Summary Pt presents to therapy with c/o pain to L hip and knee impacting her ADLs and community ambulation. Had L knee MRI (10/11/2023) revealed acute strain to IT band, grade 1 strain to MCL, complete tear of meniscus. She demos ROM deficits, L LE weakness, postural impairments, gait deficits. She will benefit from skilled PT to reduce pain, improve strength and functional mobility, reduce risk for falls. Plan of Care Interventions Check Out for Orthotic/Prosthetic,Electrical Stimulation,Gait Training,Hot Pack/Cold Pack, Manual Therapy,Neuro Re-education,Patient/ Caregiver Education,Therapeutic Activities, Therapeutic Exercise,Ultrasound Other Interventions IASTM PT Services Indicated Yes Treatment Frequency and 2x/week x 12 visits Duration These treatments will address the objective and functional deficits as defined above. The patient will be advanced safely and appropriately in order for the patient to progress towards his/her prior level of function. Additional exercises will be introduced and as well as a comprehensive home exercise program upon discharge, if needed, ?to ensure carryover of functional gains achieved in the clinic. This treatment plan has been reviewed and agreement upon by the patient.
--- NOTE | 2025-04-29 14:05 | OPREHPOC ---
Outpatient Therapy Plan of Care This is a Multidisciplinary Plan of Care that may contain components documented by all disciplines (PT, OT, and ST.) PT Problem 1 PT Problem #1 Knowledge Deficit PT Goal 1 Goal / Goal Update Pt. will demo good understanding of diagnosis and prognosis, HEPs. Target Visit 10 Progress Met PT Problem 2 PT Problem #2 Pain PT Goal 1 Goal / Goal Update Pt will report 1-2/10 level of pain at worst or when standing, walking and going up/down stairs. (04/29/2025): cont with this goal Target Visit 12 Progress Partially Met PT Problem 3 PT Problem #3 Impaired Strength PT Goal 1 Goal / Goal Update Pt will perform SLS of 10 seconds each LE with improved stability and balance. RLE: 10 seconds LLE: 4 and 6 seconds update (04/29/2025): continue with goal Target Visit 12 Progress Partially Met PT Problem 4 PT Problem #4 Impaired Gait PT Goal 1 Goal / Goal Update Pt will demo normalized gait pattern with appropriate orthosis in order to improve ambulation safety and tolerance. --cont with this goal updated 04/29/2025: Pt will demo improved hip stability and alignment without trendelenburg sag in order to improve gait mechanics with appropriate orthosis in place. Target Visit 12
--- NOTE | 2025-04-29 14:05 | PTOPPROG ---
Assessment and note entered by Yenni Aviles, PT Re-Evaluation Information Assessment Status Progress Diagnosis M17.12 ICD-10 Condition Codes (PT) Pain in left hip M25.552,Pain in left knee M25.562 ,Difficulty Walking R26.2,Abnormalities of gait and mobility R26.9,Weakness R53.1 Subjective Information Pt reports that she is 80% better right now compared to when she first started. Continue to feel stiff and back and hip pain in the mornings. More aware and cautious now since started therapy. [place] how to recover from the floor and feels that she has gained some strength. Assessment PT Clinical Summary Pt received 13 treatment sessions and reports reduction in pain levels, she also demos good functional improvement including increased gait distance, reduced fall risk, and improved balance. However she continue to demo deficits in strength particularly her L hip abductor muscles impacting her stability and stability with performing dynamic standing tasks and safety with indep community ambulation. She will benefit from continued PT to address above mentioned deficits and achieve established goals. Plan of Care Interventions Check Out for Orthotic/Prosthetic,Electrical Stimulation,Gait Training,Hot Pack/Cold Pack, Manual Therapy,Neuro Re-education,Patient/ Caregiver Education,Therapeutic Activities, Therapeutic Exercise,Ultrasound Other Interventions IASTM PT Services Indicated Yes Treatment Frequency and 1-2x/wk x 10 visits Duration These treatments will address the objective and functional deficits as defined above. The patient will be advanced safely and appropriately in order for the patient to progress towards his/her prior level of function. Additional exercises will be introduced and as well as a comprehensive home exercise program upon discharge, if needed, ?to ensure carryover of functional gains achieved in the clinic. This treatment plan has been reviewed and agreement upon by the patient.
== END 2025-05-31 23:59 | disposition home or self-care (01) ==
LOC: ANHPT 11:15
PROVIDERS: PCP Family Medicine Adolescent Medicine; Visit Provider Family Medicine Adolescent Medicine
DX: M17.12 Unilateral primary osteoarthritis, left knee (principal)
CPT/HCPCS: 97035; 97110; 97116; 97140; 97161; 97530; 97750

== ENCOUNTER 2025-06-03 09:44 | Outpatient (RCR) | payer OTHER, SELFPAY ==
--- NOTE | 2025-06-03 16:04 | PTOPDC ---
Assessment and note entered by Yenni Aviles, PT Discharge Information Assessment Status Discharge Diagnosis M17.12 ICD-10 Condition Codes (PT) Pain in left hip M25.552,Pain in left knee M25.562 ,Difficulty Walking R26.2,Abnormalities of gait and mobility R26.9,Weakness R53.1 Subjective Information Pt reports she is feeling fairly good Reported Pain Level Pain Score 1: Self Report Additional Pain Score Comments not too much pain this morning Assessment PT Clinical Summary Pt received a total of 20 treatment sessions to address chronic hip and knee pain, balance deficits and gait deviations. She demos great gains in strength and active ROM, reduced pain levels and improved ambulation tolerance, improved gait mechanics using appropriate orthosis and AD to improve balance and stability and reduce risk for falls. She reports compliant with HEPs and agreeable to DC at this time. Skilled PT discontinued. Plan of Care PT Services Indicated No
== END 2025-06-06 09:35 | disposition home or self-care (01) ==
LOC: ANHPT 09:44
PROVIDERS: PCP Family Medicine Adolescent Medicine; Visit Provider Family Medicine Adolescent Medicine
DX: M17.12 Unilateral primary osteoarthritis, left knee (principal)
CPT/HCPCS: 97035; 97110; 97750